=== PATIENT | female | born 1990 | race African-American/Black ===

== ENCOUNTER 2016-11-06 16:26 | Emergency (ER) | payer BC ==
[~2016-11-06] VITALS: Ht 157.5 cm; Wt 79.0 kg
[~2016-11-06 16:26] MED LIST: AMOXICILLIN/CL875 MG PO; AMOXICILLIN500 MG PO; AZITHROMYCIN1 GM PO; BACTRIM DS1 TAB OR; BACTRIM DS1 TAB PO; CIPRO500 MG OR; CIPRO500 MG PO; CLARITIN10 M1 PO; DOXYCYC MONO100 MG OR; DOXYCYCL HYC100 MG PO; FLONASE NASAL50 MCG; LORTAB 10 PO; LORTAB5 PO; MEDDOSEPAK OR; MEDDOSEPAK PO; MUCINEX600 MG PO; NAPROSYN500 MG PO; NO HOME MEDS; PERCOCET 5/325M1 TAB; PRENATA3 OR; TAM75CAP PO; TESSALON PER100 MG PO; VIBRAMYCIN100 MG OR; ZYRTEC10 MG PO
[2016-11-06 18:07] LABS: URINE BILIRUBIN - DIPSTICK NEGATIVE (NEGATIVE); URINE BLOOD DIPSTICK NEGATIVE (NEGATIVE); URINE CLARITY CLEAR; URINE COLOR YELLOW; URINE GLUCOSE - DIPSTICK NEGATIVE (NEGATIVE); URINE KETONE NEGATIVE (NEGATIVE); URINE LEUK ESTERASE NEGATIVE (NEGATIVE); URINE NITRITE - DIPSTICK NEGATIVE (Negative); URINE PROTEIN - DIPSTICK NEGATIVE (NEG-TRACE); URINE UROBILINOGEN - DIPSTICK 0.2 E.U./dL (0.2)
[2016-11-06] MEDS ORDERED: FLEXERIL PO (18:34)
[2016-11-06] MEDS ORDERED: TRAMADOL HYDROC50 MG PO (18:34)
[2016-11-06] MEDS ORDERED: MOTRIN800 MG PO (18:34)
[2016-11-06 18:41] VITALS: BP 125/87
== END 2016-11-06 18:45 | disposition home or self-care (01) | DRG 552 ==
LOC: ED 16:26
PROVIDERS: Emergency Medicine
DX: M54.5 Low back pain (principal)

== ENCOUNTER 2023-08-05 20:41 | Emergency (ER) | payer OTHER ==
[~2023-08-05] VITALS: Ht 157.5 cm; Wt 91.0 kg
[~2023-08-05 20:41] MED LIST changes: +FLEXERIL PO; +MOTRIN800 MG PO; +TRAMADOL HYDROC50 MG PO
[2023-08-05 20:48] VITALS: BP 149/83
[2023-08-05 21:01] VITALS: BP 154/94
[2023-08-05] MEDS ORDERED: METHOCARBAMOL500 MG PO (21:49)
[2023-08-05] MEDS ORDERED: MELOXICAM15 MG PO (21:49)
[2023-08-05] MEDS ORDERED: PREDNISONE20 MG PO (21:49)
[2023-08-05 22:08] VITALS: BP 149/83
== END 2023-08-05 22:08 | disposition home or self-care (01) | DRG 558 ==
LOC: ED 20:41
DX: M75.31 Calcific tendinitis of right shoulder (principal)